=== PATIENT | male | born 1985 | race Caucasian/White ===

== ENCOUNTER 2022-07-09 08:33 | Observation (INO) | payer OTHER ==
--- NOTE | 2022-07-09 08:57 | ED ---
SOB HPI - General Chief Complaint: Shortness of Breath Stated Complaint: ISREAL Time Seen by Provider: 07/09/22 08:37 Source: patient, EMS, RN notes reviewed Mode of arrival: EMS Limitations: no limitations - History of Present Illness Initial Comments: Patient is a 37 year old male with a past medical history significant for asthma presents to the ER via EMS with a chief complaint of shortness of breath. Patient states his shortness of breath has been occurring for a couple of days. He endorses associated productive yellow cough and wheezing. Patient has been using his albuterol inhaler with no relief. When EMS arrived patient has low )2 saturation and was started on oxygen and received Duoneb. He states it helped but is now wearing off. Denies home O2 use. Patient admits to chills, nightsweats, headaches, and body aches for the past couple of days. Denies fevers, chest pain/palpitations, abdominal pain, diarrhea, constipation, or peripheral edema. - Related Data Home Medications Medication Instructions Recorded Confirmed Albuterol Nebulized [Ventolin 2.5 mg INHALATION RT-BID 07/09/22 07/09/22 Nebulized] Ipratropium Nebulized [Atrovent 0.5 mg INHALATION RT-BID 07/09/22 07/09/22 Nebulized 0.2 MG/ML] Allergies Allergy/AdvReac Type Severity Reaction Status Date / Time amoxicillin [From Augmentin] AdvReac Nausea Verified 07/09/22 09:52 clavulanic acid AdvReac Nausea Verified 07/09/22 09:52 [From Augmentin] Cats Allergy Itching Uncoded 07/09/22 08:42 Review of Systems ROS Statement: Those systems with pertinent positive or pertinent negative responses have been documented in the HPI. ROS Other: All systems not noted in ROS Statement are negative. Past Medical History Past Medical History: Asthma History of Any Multi-Drug Resistant Organisms: None Reported Past Surgical History: No Surgical Hx Reported Past Psychological History: Anxiety, Depression Smoking Status: Current some day smoker Past Alcohol Use History: None Reported Past Drug Use History: Heroin, Methamphetamine General Exam Limitations: no limitations General appearance: alert, in no apparent distress Head exam: Present: atraumatic, normocephalic, normal inspection Eye exam: Present: normal appearance, PERRL, EOMI. Absent: scleral icterus, conjunctival injection, periorbital swelling ENT exam: Present: normal exam, mucous membranes moist Neck exam: Present: normal inspection. Absent: tenderness, meningismus, lymphadenopathy Respiratory exam: Present: wheezes (diffuse bilateral), rales (diffuse bilateral ) Cardiovascular Exam: Present: regular rate, normal rhythm, normal heart sounds. Absent: systolic murmur, diastolic murmur, rubs, gallop, clicks GI/Abdominal exam: Present: soft, normal bowel sounds. Absent: distended, tenderness, guarding, rebound, rigid Extremities exam: Present: normal inspection, full ROM, normal capillary refill. Absent: tenderness, pedal edema, joint swelling, calf tenderness Back exam: Present: normal inspection Neurological exam: Present: alert, oriented X3, CN II-XII intact Psychiatric exam: Present: normal affect, normal mood Skin exam: Present: warm, dry, intact, normal color. Absent: rash Course Vital Signs 07/09/22 07/09/22 07/09/22 08:34 08:44 09:38 Temperature 97.9 F Pulse Rate 84 82 80 Respiratory 18 18 18 Rate Blood Pressure 114/76 116/72 O2 Sat by Pulse 91 L 95 95 Oximetry 07/09/22 07/09/22 09:51 10:00 Temperature Pulse Rate 84 Respiratory Rate Blood Pressure O2 Sat by Pulse 87 L Oximetry Medical Decision Making - Medical Decision Making 37-year-old male presented from [place] for shortness of breath. Patient is a daily smoker does have a history of asthma. Patient is found to be hypoxic with pulse ox 87 patient is has received multiple breathing treatments, steroids. Patient be admitted for asthma exacerbation. - Lab Data Lab Results 07/09/22 07/09/22 Range/Units 09:03 09:03 Coronavirus (PCR) Not Detected (Not Detectd) Influenza Type A RNA Not Detected (Not Detectd) Influenza Type B (PCR) Not Detected (Not Detectd) Disposition Clinical Impression: Hypoxia, Acute asthma exacerbation Disposition: ADMITTED IP TO THIS HOSP Condition: Fair Referrals: None,Stated [Primary Care Provider] - 1-2 days Time of Disposition: 10:14
[2022-07-09] MEDS ORDERED: IPRATROPIUM-ALBUTEROL 3 ML NEB INHALATION STA ×2 (08:59→09:32)
--- NOTE | 2022-07-09 09:09 | XR ---
EXAMINATION TYPE: XR chest 2V DATE OF EXAM: 07/09/2022 COMPARISON: NONE HISTORY: Chest pain TECHNIQUE: Frontal and lateral views of the chest are obtained. FINDINGS: There is no focal air space opacity. No evidence for pneumothorax. No pleural effusion. The cardiac silhouette size is within normal limits. The osseous structures are grossly intact. IMPRESSION: 1. No acute cardiopulmonary process.
[2022-07-09] MEDS ORDERED: methylPREDNISolone SOD SUCCI 125 MG/2 ML VIAL IM ONE (09:33)
[2022-07-09] MEDS ORDERED: methylPREDNISolone SOD SUCCI 125 MG/2 ML VIAL IV STA (09:34)
[2022-07-09] MEDS ORDERED: NALOXONE 0.4 MG/ML 1 ML VIAL IVP PRN (10:18)
[2022-07-09] MEDS ORDERED: ACETAMINOPHEN TAB 325 MG TAB PO PRN (10:18)
[2022-07-09 10:38] LABS: Basophils % (A) 0 %; Eosinophils # (A) 0.4 k/uL (0-0.7); Eosinophils % (A) 3 %; HCT 34.4 % (39.0-53.0); HGB 12.1 gm/dL (13.0-17.5); Lymphocytes # (A) 1.6 k/uL (1.0-4.8); Lymphocytes % (A) 14 %; MCH 31.3 pg (25.0-35.0); MCHC 35.1 g/dL (31.0-37.0); MCV 89.3 fL (80.0-100.0); Mean Platelet Volume 8.7; Monocytes # (A) 0.5 k/uL (0-1.0); Monocytes % (A) 5 %; Neutrophils % (A) 76 %; Platelet Count 206 k/uL (150-450); RBC 3.85 m/uL (4.30-5.90); RDW 13.3 % (11.5-15.5); WBC 11.8 k/uL (3.8-10.6)
[2022-07-09 11:01] LABS: ALT 19 U/L (4-49); African American GFR (CKD) >90 (>60 ml/min/1.73 sqM); Albumin 3.7 g/dL (3.5-5.0); Anion Gap 6 mmol/L; Blood Urea Nitrogen 18 mg/dL (9-20); Calcium 8.4 mg/dL (8.4-10.2); Carbon Dioxide 30 mmol/L (22-30); Chloride 98 mmol/L (98-107); Glucose 126 mg/dL (74-99); Non-African American GFR(CKD) >90 (>60 ml/min/1.73 sqM); Sodium 134 mmol/L (137-145); Total Bilirubin 0.8 mg/dL (0.2-1.3); Total Protein 6.3 g/dL (6.3-8.2)
[2022-07-09 11:17] LABS: Potassium 4.8 mmol/L (3.5-5.1)
[2022-07-09 11:18] LABS: AST 28 U/L (17-59); Alkaline Phosphatase 75 U/L (38-126)
[2022-07-09] MEDS: methylPREDNISolone SOD SUCCI 125 MG/2 ML VIAL IV SCH ×2 (12:09→17:31)
[2022-07-09] MEDS: NICOTINE 21MG/24HR PATCH TRANSDERM SCH (12:13)
--- NOTE | 2022-07-09 12:43 | P.HPIM ---
History of Present Illness H&P Date: 07/09/22 History of Presenting Illness: Patient is a very pleasant 37-year-old male with a past medical history of hepatitis C status post treatment, genital herpes, IVDA with heroin and methamphetamines, anxiety, asthma, and nicotine dependence smoking half a pack t o a pack of cigarettes daily since the age of 13. He presented to the emergency department with a chief complaint of increased shortness of breath. Patient presented to the emergency department via EMS with a chief complaint of shortness of breath/asthma exacerbation. Patient reports that he has been experiencing increasing shortness of breath with persistent productive cough 2- 3 days. Patient reports productive cough with yellow phlegm. He denies having any ill contacts or exposure to known illnesses. He denies having any fevers, chills, diaphoresis, chest pain, palpitations, nausea, vomiting, or experiencing any numbness/tingling/weakness in his extremities. Patient reports he has been trying to quit smoking and currently in [place] [facility]. Patient reports that he is from [place] and his PCP has managed his asthma his entire life since diagnosis as a child and states he has never been evaluated by a plugger man. Patient underwent full evaluation in the emergency department. Patient was found to be hypoxic on room air with SpO2 of 87% requiring oxygen supplementation, steroids, and breathing treatments. X-ray was completed negative for acute cardiopulmonary process. CBC and CMP completed revealing mild leukocytosis with WBC count of 11.8, normocytic anemia with hemoglobin of 12.1, and mild hyponatremia with sodium of 134. Covid PCR, influenza A, and influenza B were all negative. Patient admitted under our services with consultation to pulmonology. Review of systems: Pertinent positives and negatives as discussed in HPI, a complete review of systems was performed and all other systems are negative. Physical exam: Vital signs reviewed and stable. General: Nontoxic, no distress and appears stated age. Thin, frail. Derm: Skin warm and dry, normal coloration for ethnicity. Head: Atraumatic, normocephalic and symmetric. Eyes: EOMs intact, no lid lag, and anicteric sclera Mouth: no lip lesions, mucus membranes moist Cardiovascular: regular rate and rhythm with normal S1S2, no murmur, positive posterior tibial pulses bilaterally, and cap refill < 2 seconds. Lungs: Respirations even, regular, and unlabored on room air. Lungs with diffuse bilateral expiratory wheezes throughout all loaiza. No rhonchi, rales, or crackles noted. Abdominal: soft, nontender to palpation, no guarding, no appreciable organomegaly Ext: ROM intact. No gross muscle atrophy, no edema, no contractures Neuro: Speech clear, face symmetrical and CN II-XII grossly intact with no noted focal neuro deficits Psych: Alert and oriented to person, place, time, and situation. Appropriate and pleasant affect. Assessment and Plan of Care: Acute asthma exacerbation Acute respiratory failure with hypoxia secondary to above Nicotine dependence -Consult to Pulmonology -Oxygenation to be administered and titrated as needed to maintain SPO2 equal to or greater than 92% -Monitor Pulse-oximetry -Duonebs scheduled and as needed for SOB and/or wheezing -Incentive Spirometry -Steroids: Solu-Medrol -Nicotine patch, recommend smoking cessation Polysubstance abuse with IVDA heroin and methamphetamines History of hepatitis C, patient reports treatment with injections but does not recall the year he received these -Recommend returning to [place] for continued rehab upon discharge from hospital. The patient is admitted with an anticipated less than 2 midnight stay for evaluation of acute asthma exacerbation. CODE STATUS: Full code DVT prophylaxis: Heparin Discussed with: Patient Anticipated discharge date: Likely tomorrow Anticipated discharge place: Home/return to [place] A total of 44 minutes was spent on the care of this complex patient more than 50% of the time was spent in counseling and care coordination. I reviewed the documentation as provided by the BALDOMERO above, who is the original author of this note. I agree with the documented assessment and plan, with the following changes: none Past Medical History Past Medical History: Asthma History of Any Multi-Drug Resistant Organisms: None Reported Past Surgical History: No Surgical Hx Reported Past Psychological History: Anxiety, Depression Smoking Status: Current some day smoker Past Alcohol Use History: None Reported Past Drug Use History: Heroin, Methamphetamine Medications and Allergies Home Medications Medication Instructions Recorded Confirmed Type Albuterol Nebulized [Ventolin 2.5 mg INHALATION RT-BID 07/09/22 07/09/22 History Nebulized] Ipratropium Nebulized [Atrovent 0.5 mg INHALATION RT-BID 07/09/22 07/09/22 History Nebulized 0.2 MG/ML] Allergies Allergy/AdvReac Type Severity Reaction Status Date / Time amoxicillin [From Augmentin] AdvReac Nausea Verified 07/09/22 09:52 clavulanic acid AdvReac Nausea Verified 07/09/22 09:52 [From Augmentin] Cats Allergy Itching Uncoded 07/09/22 08:42 Physical Exam Osteopathic Statement: *. No significant issues noted on an osteopathic structural exam other than those noted in the History and Physical/Consult. Vitals: Vital Signs Temp Pulse Resp BP Pulse Ox 07/09/22 10:00 87 L 07/09/22 09:51 84 07/09/22 09:38 80 18 116/72 95 07/09/22 08:44 82 18 95 07/09/22 08:34 97.9 F 84 18 114/76 91 L Intake and Output 07/08/22 07/09/22 07/09/22 22:59 06:59 14:59 Other: Weight 56.699 kg Results CBC & Chem 7: 07/09/22 10:03 07/09/22 10:03 Labs: Abnormal Lab Results - Last 24 Hours (Table) 07/09/22 Range/Units 10:03 WBC 11.8 H (3.8-10.6) k/uL RBC 3.85 L (4.30-5.90) m/uL Hgb 12.1 L (13.0-17.5) gm/dL Hct 34.4 L (39.0-53.0) % Neutrophils # 9.0 H (1.3-7.7) k/uL
[2022-07-09] MEDS: IPRATROPIUM-ALBUTEROL 3 ML NEB INHALATION SCH ×3 (13:04→20:23)
[2022-07-09] MEDS: HEPARIN SODIUM,PORCINE/PF 5,000 UNIT/0.5 ML SYRINGE SQ SCH (16:46)
--- NOTE | 2022-07-09 17:57 | P.CNPUL ---
History of Present Illness Consult date: 07/09/22 Reason for consult: COPD History of present illness: 37-year-old male patient, no history of smoking, polysubstance abuse, who was at [place] [facility] and the patient was admitted to our hospital because of worsening shortness of breath. He presented emergency department with increased dyspnea, chest tightness, wheezing and worsening shortness of breath. He is known to have COPD. He does not have any maintenance respiratory medications. No n ebulizer. No oxygen. He has received 1 dose of [employer] Covid 19 vaccination and he denies having an active infection. He smokes somewhere between half to 1 pack of cigarettes a day. The patient has history of IV drug use including heroin and he uses also methamphetamine and he has issues with chronic hepatitis C and he has received treatment in that regard and has genital herpes. The patient is being rehabilitated through [facility] facility. During this current admission, the patient's chest x-ray shows some fullness in the hilar area bilaterally. Otherwise there is no acute abnormalities. Rest of the blood work is essentially negative. Normal CBC and normal complete metabolic profile. The patient's vital screening including influenza A, influenza B and Covid 19 are all negative. The patient is able to speak of. Is S/P no signs of any CO2 narcosis. No pleurisy or hemoptysis. His liver function tests are within normal limits. His white cell count is 11.8. Review of Systems Constitutional: Denies chills, Denies fever Eyes: denies as per HPI, denies blurred vision, denies bulging eye, denies decreased vision, denies diplopia, denies discharge, denies dry eye, denies irritation, denies itching, denies pain, denies photophobia, denies loss of peripheral vision, denies loss of vision, denies tunnel vision/blind spots Ears: deny: decreased hearing, ear discharge, earache, tinnitus Ears, nose, mouth and throat: Reports as per HPI Breasts: absent: as per HPI, gynecomastia Cardiovascular: Reports decreased exercise tolerance, Reports dyspnea on exertion, Reports shortness of breath Respiratory: Reports cough, Reports dyspnea, Reports wheezing Gastrointestinal: Reports as per HPI Genitourinary: Reports as per HPI Musculoskeletal: Reports as per HPI Musculoskeletal: absent: ankle pain, ankle stiffness, ankle swelling Integumentary: Reports as per HPI Neurological: Reports as per HPI Psychiatric: Reports as per HPI Endocrine: Reports as per HPI Hematologic/Lymphatic: Reports as per HPI Allergic/Immunologic: Reports allergic rhinitis Past Medical History Past Medical History: Asthma, COPD, GERD/Reflux, Liver Disease, Pneumonia Additional Past Medical History / Comment(s): Hepatitis C/pt states had treatment and is in remission, constipation. History of Any Multi-Drug Resistant Organisms: None Reported Past Surgical History: No Surgical Hx Reported Past Anesthesia/Blood Transfusion Reactions: Unable to Obtain Additional Past Anesthesia/Blood Transfusion Reaction / Comment(s): Pt has never had surgery. Smoking Status: Current every day smoker, Light tobacco smoker - Past Family History Father Family Medical History: Cancer Additional Family Medical History / Comment(s): Melanoma Mother Family Medical History: No Reported History Additional Family Medical History / Comment(s): Mother is healthy. Medications and Allergies Home Medications Medication Instructions Recorded Confirmed Type Albuterol Nebulized [Ventolin 2.5 mg INHALATION RT-BID 07/09/22 07/09/22 History Nebulized] Ipratropium Nebulized [Atrovent 0.5 mg INHALATION RT-BID 07/09/22 07/09/22 History Nebulized 0.2 MG/ML] Allergies Allergy/AdvReac Type Severity Reaction Status Date / Time amoxicillin [From Augmentin] AdvReac Nausea Verified 07/09/22 09:52 clavulanic acid AdvReac Nausea Verified 07/09/22 09:52 [From Augmentin] Cats Allergy Itching Uncoded 07/09/22 08:42 Physical Exam Vitals: Vital Signs Temp Pulse Pulse Resp BP BP Pulse Ox 07/09/22 16:04 97.5 F L 75 17 106/68 95 07/09/22 15:20 97.4 F L 83 18 107/72 95 07/09/22 13:12 72 07/09/22 13:06 68 07/09/22 12:05 62 18 107/71 97 07/09/22 10:00 87 L 07/09/22 09:51 84 07/09/22 09:38 80 18 116/72 95 07/09/22 08:44 82 18 95 07/09/22 08:34 97.9 F 84 18 114/76 91 L Intake and Output 07/09/22 07/09/22 07/09/22 06:59 14:59 22:59 Other: # Voids 1 Weight 56.699 kg 56.699 kg General: Nontoxic, no distress and appears stated age. Thin, frail. Derm: Skin warm and dry, normal coloration for ethnicity. Head: Atraumatic, normocephalic and symmetric. Eyes: EOMs intact, no lid lag, and anicteric sclera Mouth: no lip lesions, mucus membranes moist Cardiovascular: regular rate and rhythm with normal S1S2, no murmur, positive posterior tibial pulses bilaterally, and cap refill < 2 seconds. Lungs: Respirations even, regular, and unlabored on room air. Lungs with diffuse bilateral expiratory wheezes throughout all loaiza. No rhonchi, rales, or crackles noted. Abdominal: soft, nontender to palpation, no guarding, no appreciable organomegaly Ext: ROM intact. No gross muscle atrophy, no edema, no contractures Neuro: Speech clear, face symmetrical and CN II-XII grossly intact with no noted focal neuro deficits Psych: Alert and oriented to person, place, time, and situation. Appropriate and pleasant affect. Results - Laboratory Findings CBC and BMP: 07/09/22 10:03 07/09/22 10:03 Abnormal lab findings: Abnormal Labs 07/09/22 07/09/22 10:03 10:03 WBC 11.8 H RBC 3.85 L Hgb 12.1 L Hct 34.4 L Neutrophils # 9.0 H Sodium 134 L Creatinine 0.57 L Glucose 126 H - Diagnostic Findings Chest x-ray: image reviewed Assessment and Plan Plan: Acute exacerbation of chronic COPD. Underlying asthma is possible that the presentation is more consistent with COPD due to his chronic smoking and drug use. Acute hypoxic yesterday failure secondary to above currently on 2 L of O2 nasal cannula Shortness of breath secondary to above History of polysubstance abuse History of IVDA/heroin History of hepatitis C infection, treated History of genital herpes Chronic tobacco use Plan Agree on the current treatment Very important for this patient to quit smoking as soon as possible and he was counseled in that regard Continue rehabilitation was second heart Obtain alpha-1 antitrypsin level on outpatient basis as the patient is quite young for COPD Obtain outpatient PFT Will need a maintenance as for medication. Suggested either stiolto, or Anoro , Trelegy Ellipta on outpatient basis. He will need also a nebulizer and albuterol rescue inhaler in the form of an HFA to be is on as-needed basis Routine vaccination We'll follow
[2022-07-09] MEDS: IPRATROPIUM-ALBUTEROL 3 ML NEB INHALATION PRN (21:04)
[2022-07-10] MEDS: methylPREDNISolone SOD SUCCI 125 MG/2 ML VIAL IV SCH ×5 (00:46→23:24)
[2022-07-10] MEDS: HEPARIN SODIUM,PORCINE/PF 5,000 UNIT/0.5 ML SYRINGE SQ SCH ×4 (00:47→23:25)
[2022-07-10] MEDS: IPRATROPIUM-ALBUTEROL 3 ML NEB INHALATION SCH ×4 (08:23→19:59)
[2022-07-10] MEDS: NICOTINE 21MG/24HR PATCH TRANSDERM SCH (09:41)
[2022-07-10] MEDS: METHADONE 10 MG TAB PO SCH (14:12)
--- NOTE | 2022-07-10 14:40 | P.PN ---
Subjective Progress Note Date: 07/10/22 37-year-old male patient, no history of smoking, polysubstance abuse, who was at [place] and the patient was admitted to our hospital because of worsening shortness of breath. He presented emergency department with increased dyspnea, chest tightness, wheezing and worsening shortness of breath. He is known to have COPD. He does not have any maintenance respiratory medications. No nebulizer. No oxygen. He has received 1 dose of [employer] Covid 19 vaccination and he denies having an active infection. He smokes somewhere between half to 1 pack of cigarettes a day. The patient has history of IV drug use including heroin and he uses also methamphetamine and he has issues with chronic hepatitis C and he has received treatment in that regard and has genital herpes. The patient is being rehabilitated through [place] [facility] facility. During this current admission, the patient's chest x-ray shows some fullness in the hilar area bilaterally. Otherwise there is no acute abnormalities. Rest of the blood work is essentially negative. Normal CBC and normal complete metabolic profile. The patient's vital screening including influenza A, influenza B and Covid 19 are all negative. The patient is able to speak of. Is S/P no signs of any CO2 narcosis. No pleurisy or hemoptysis. His liver function tests are within normal limits. His white cell count is 11.8. The patient is seen today the 2021 in follow-up on the regular medical floor. He is currently resting comfortably in bed. Awake and alert in no acute distress. Denies any worsening shortness of breath, cough and congestion. He is maintaining O2 saturations in the 90s on room air. He is afebrile. Hemodynamically stable. He is starting to feel in need of his methadone which has been reordered. He is continued on DuoNeb inhalations, IV Solu-Medrol. NicoDerm patches in place. Objective - Vital Signs Vital signs: Vital Signs Temp 97.5 F L 07/10/22 07:00 Pulse 98 07/10/22 13:16 Resp 16 07/10/22 07:00 BP 107/66 07/10/22 07:00 Pulse Ox 94 L 07/10/22 08:24 FiO2 Intake & Output 07/09/22 07/10/22 07/10/22 18:59 06:59 18:59 Intake Total 354 Balance 354 Weight 56.699 kg Intake: Oral 354 Other: # Voids 1 1 - Exam General: A pleasant 37-year-old male patient. Nontoxic, no distress and appears stated age. Thin, frail. Derm: Skin warm and dry, normal coloration for ethnicity. Head: Atraumatic, normocephalic and symmetric. Eyes: EOMs intact, no lid lag, and anicteric sclera Mouth: no lip lesions, mucus membranes moist Cardiovascular: regular rate and rhythm with normal S1S2, no murmur, positive posterior tibial pulses bilaterally, and cap refill < 2 seconds. Lungs: Respirations even, regular, and unlabored on room air. Lungs with bilateral expiratory wheezes throughout all loaiza. No rhonchi, rales, or crackles noted. Abdominal: soft, nontender to palpation, no guarding, no appreciable organomegaly Ext: ROM intact. No gross muscle atrophy, no edema, no contractures Neuro: Speech clear, face symmetrical and CN II-XII grossly intact with no noted focal neuro deficits Psych: Alert and oriented to person, place, time, and situation. Appropriate and pleasant affect. - Labs CBC & Chem 7: 07/09/22 10:03 07/09/22 10:03 Assessment and Plan Assessment: Acute exacerbation of chronic COPD. Underlying asthma is possible that the presentation is more consistent with COPD due to his chronic smoking and drug use. Acute hypoxic yesterday failure secondary to above currently on 2 L of O2 nasal cannula Shortness of breath secondary to above History of polysubstance abuse History of IVDA/heroin History of hepatitis C infection, treated History of genital herpes Chronic tobacco use Plan The patient was seen and evaluated Medications reviewed Continue bronchodilators, steroids Educated regarding the importance of complete smoking cessation NicoDerm patches apply Would benefit from outpatient workup including full PFT The plan is to return to [place] rehabilitation upon discharge I have personally seen and examined the patient, performed the documentation and the assessment and plan as written. Number of minutes spent on the visit: 10. Joint evaluation that was done along with a nurse practitioner. Clinically stable. No new complaints. Having some symptoms of withdrawal and the patient will need to go back on methadone. Continue optimizing COPD exacerbation with a combination of bronchodilators and steroids. We'll continue to follow.
--- NOTE | 2022-07-10 18:27 | P.PN ---
Subjective Progress Note Date: 07/10/22 Hospital course: Patient is a very pleasant 37-year-old male with a past medical history of hepatitis C status post treatment, genital herpes, IVDA with heroin and methamphetamines, anxiety, asthma, and nicotine dependence smoking half a pack to a pack of cigarettes daily since the age of 13. He presented to the emergency department with a chief complaint of increased shortness of breath. Patient presented to the emergency department via EMS with a chief complaint of shortness of breath/asthma exacerbation from [facility] reporting that he has been experiencing increasing shortness of breath with persistent productive cough 2-3 days. Patient reports he has been trying to quit smoking and currently in [facility]. Patient reports that he is from [place] and his PCP has managed his asthma his entire life since diagnosis as a child and states he has never been evaluated by a manager of planning. Patient underwent full evaluation in the emergency department. Patient was found to be hypoxic on room air with SpO2 of 87% requiring oxygen supplementation, steroids, and breathing treatments. X-ray was completed negative for acute cardiopulmonary process. CBC and CMP completed revealing mild leukocytosis with WBC count of 11.8, normocytic anemia with hemoglobin of 12.1, and mild hyponatremia with sodium of 134. Covid PCR, influenza A, and influenza B were all negative. Patient admitted under our services with consultation to pulmonology. Physical exam: Patient seen and fully evaluated at bedside this morning. He reports feeling slightly better but states he feels still weak and short of breath. Patient does have continued bronchospasms with wheezing throughout all loaiza this morning. However he is maintaining his oxygen saturation in the 90s on room air and showing no signs of acute distress with respirations even, regular, and unlabored. Patient again educated on the importance of smoking cessation and risks associated with continued use. Patient to continue with scheduled and as needed DuoNeb treatments and IV steroids with plan for discharge home on prednisone taper tomorrow. Vital signs reviewed and stable. General: Nontoxic, no distress and appears stated age. Thin, frail. Derm: Skin warm and dry, normal coloration for ethnicity. Head: Atraumatic, normocephalic and symmetric. Eyes: EOMs intact, no lid lag, and anicteric sclera Mouth: no lip lesions, mucus membranes moist Cardiovascular: regular rate and rhythm with normal S1S2, no murmur, positive posterior tibial pulses bilaterally, and cap refill < 2 seconds. Lungs: Respirations even, regular, and unlabored on room air. Lungs with diffuse bilateral expiratory wheezes throughout all loaiza. No rhonchi, rales, or crackles noted. Abdominal: soft, nontender to palpation, no guarding, no appreciable organomegaly Ext: ROM intact. No gross muscle atrophy, no edema, no contractures Neuro: Speech clear, face symmetrical and CN II-XII grossly intact with no noted focal neuro deficits Psych: Alert and oriented to person, place, time, and situation. Appropriate and pleasant affect. Assessment and Plan of Care: Acute asthma exacerbation Acute respiratory failure with hypoxia secondary to above Nicotine dependence -Consult to Pulmonology -Oxygenation to be administered and titrated as needed to maintain SPO2 equal to or greater than 92% -Monitor Pulse-oximetry -Duonebs scheduled and as needed for SOB and/or wheezing -Incentive Spirometry -Steroids: Solu-Medrol -Nicotine patch, recommend smoking cessation Polysubstance abuse with IVDA heroin and methamphetamines History of hepatitis C, patient reports treatment with injections but does not recall the year he received these -Recommend returning to [facility] for continued rehab upon discharge from hospital. -Methadone was verified by pharmacy and reordered this morning. CODE STATUS: Full code DVT prophylaxis: Heparin Discussed with: Patient and RN Anticipated discharge date: Tomorrow morning Anticipated discharge place: Home/return to [facility] A total of 31 minutes was spent on the care of this complex patient more than 50% of the time was spent in counseling and care coordination. I reviewed the documentation as provided by the BALDOMERO above, who is the original author of this note. I agree with the documented assessment and plan, with the following changes: none Objective - Vital Signs Vital signs: Vital Signs Temp 97.5 F L 07/10/22 07:00 Pulse 89 07/10/22 08:34 Resp 16 07/10/22 07:00 BP 107/66 07/10/22 07:00 Pulse Ox 94 L 07/10/22 08:24 FiO2 Intake & Output 07/09/22 07/10/22 07/10/22 18:59 06:59 18:59 Intake Total 118 Balance 118 Weight 56.699 kg Intake: Oral 118 Other: # Voids 1 1 - Labs CBC & Chem 7: 07/09/22 10:03 07/09/22 10:03
[2022-07-10] MEDS ORDERED: MELATONIN 5 MG TABLET PO STA (19:49)
[2022-07-10] MEDS ORDERED: ALPRAZolam 0.5 MG TAB PO STA (19:49)
[2022-07-11] MEDS: IPRATROPIUM-ALBUTEROL 3 ML NEB INHALATION PRN (01:00)
[2022-07-11] MEDS ORDERED: BENZONATATE 100 MG CAP PO PRN (01:46)
[2022-07-11] MEDS: methylPREDNISolone SOD SUCCI 125 MG/2 ML VIAL IV SCH ×3 (06:32→17:17)
[2022-07-11] MEDS: IPRATROPIUM-ALBUTEROL 3 ML NEB INHALATION SCH ×5 (08:35→19:58)
[2022-07-11] MEDS: NICOTINE 21MG/24HR PATCH TRANSDERM SCH (08:54)
[2022-07-11] MEDS: METHADONE 10 MG TAB PO SCH (08:54)
[2022-07-11] MEDS: HEPARIN SODIUM,PORCINE/PF 5,000 UNIT/0.5 ML SYRINGE SQ SCH ×2 (08:55→17:17)
[2022-07-11] MEDS ORDERED: ALPRAZolam 0.5 MG TAB PO STA (10:18)
--- NOTE | 2022-07-11 14:13 | P.PN ---
Subjective Progress Note Date: 07/11/22 Principal diagnosis: SOB Hospital Course: Patient is a very pleasant 37-year-old male with a past medical history of hepatitis C status post treatment, genital herpes, IVDA with heroin and methamphetamines, anxiety, asthma, and nicotine dependence smoking half a pack to a pack of cigarettes daily since the age of 13. He presented to the emergency department with a chief complaint of increased shortness of breath. Patient presented to the emergency department via EMS with a chief complaint of shortness of breath/asthma exacerbation from [facility] reporting that he has been experiencing increasing shortness of breath with persistent productive cough 2-3 days. Patient reports he has been trying to quit smoking and currently in [facility]. Patient reports that he is from [place] and his PCP has managed his asthma his entire life since diagnosis as a child and states he has never been evaluated by a lmonologist. Patient underwent full evaluation in the emergency department. Patient was found to be hypoxic on room air with SpO2 of 87% requiring oxygen supplementation, steroids, and breathing treatments. X-ray was completed negative for acute cardiopulmonary process. CBC and CMP completed revealing mild leukocytosis with WBC count of 11.8, normocytic anemia with hemoglobin of 12.1, and mild hyponatremia with sodium of 134. Covid PCR, influenza A, and influenza B were all negative. Patient admitted under our services with consultation to pulmonology. Subjective: Patient seen and examined at bedside. No acute events overnight. Still complaining of some nausea. He he still has some shortness of breath at rest and with exertion. He denies any chest pain, abdominal pain, vomiting, diarrhea, constipation, or urinary complaints. Pertinent positives and negatives as discussed above, a complete review of systems was performed and all other systems are negative. Vitals Signs Reviewed. General: nontoxic, no distress, appears at stated age Derm: warm, dry Head: atraumatic, normocephalic, symmetric Eyes: EOMI, no lid lag, anicteric sclera Mouth: no lip lesion, mucus membranes moist Cardiovascular: S1S2 reg, no murmur Lungs: Scattered wheezes bilaterally, no accessory muscle use Abdominal: soft, nontender to palpation, no guarding, no appreciable organomegaly Ext: no gross muscle atrophy, no edema, no contractures Neuro: CN II-XI grossly intact, no focal neuro deficits Psych: Alert, oriented, appropriate affect Assessment and Plan: Acute COPD exacerbation and possible asthma exacerbation Acute respiratory failure with hypoxia secondary to above Nicotine dependence -Consult to Pulmonology -Oxygenation to be administered and titrated as needed to maintain SPO2 equal to or greater than 92% -Monitor Pulse-oximetry -Duonebs scheduled and as needed for SOB and/or wheezing -Incentive Spirometry -Steroids: Solu-Medrol -Nicotine patch, recommend smoking cessation Polysubstance abuse with IVDA heroin and methamphetamines History of hepatitis C, patient reports treatment with injections but does not recall the year he received these -Recommend returning to [facility] for continued rehab upon discharge from hospital. -on methadone DVT ppx: SQ heparin Code status: full code Anticipated discharge place: [place] Anticipated discharge time: tomorrow Objective - Vital Signs Vital signs: Vital Signs Temp 97.5 F L 07/11/22 07:00 Pulse 65 07/11/22 13:27 Resp 16 07/11/22 13:27 BP 108/57 07/11/22 07:00 Pulse Ox 93 L 07/11/22 08:35 FiO2 21 07/11/22 08:35 Intake & Output 07/10/22 07/11/22 07/11/22 18:59 06:59 18:59 Intake Total 354 920 354 Balance 354 920 354 Intake: Oral 354 920 354 Other: Voiding Method Toilet Toilet # Voids 4 2 # Bowel Movements 2 - Labs CBC & Chem 7: 07/09/22 10:03 07/09/22 10:03
--- NOTE | 2022-07-11 15:09 | P.PN ---
Subjective Progress Note Date: 07/11/22 37-year-old male patient, no history of smoking, polysubstance abuse, who was at [facility] and the patient was admitted to our hospital because of worsening shortness of breath. He presented emergency department with increased dyspnea, chest tightness, wheezing and worsening shortness of breath. He is known to have COPD. He does not have any maintenance respiratory medications. No nebulizer. No oxygen. He has received 1 dose of [employer] Covid 19 vaccination and he denies having an active infection. He smokes somewhere between half to 1 pack of cigarettes a day. The patient has history of IV drug use including heroin and he uses also methamphetamine and he has issues with chronic hepatitis C and he has received treatment in that regard and has genital herpes. The patient is being rehabilitated through [facility]. During this current admission, the patient's chest x-ray shows some fullness in the hilar area bilaterally. Otherwise there is no acute abnormalities. Rest of the blood work is essentially negative. Normal CBC and normal complete metabolic profile. The patient's vital screening including influenza A, influenza B and Covid 19 are all negative. The patient is able to speak of. Is S/P no signs of any CO2 narcosis. No pleurisy or hemoptysis. His liver function tests are within normal limits. His white cell count is 11.8. The patient is seen today the 2021 in follow-up on the regular medical floor. He is currently resting comfortably in bed. Awake and alert in no acute distress. Denies any worsening shortness of breath, cough and congestion. He is maintaining O2 saturations in the 90s on room air. He is afebrile. Hemodynamically stable. He is starting to feel in need of his methadone which has been reordered. He is continued on DuoNeb inhalations, IV Solu-Medrol. NicoDerm patches in place. The patient is seen today 07/11/2022 in follow-up on the regular medical floor. He is currently laying flat in bed. Awake and alert in no acute distress. Still not feeling back to his baseline. Still somewhat bronchospastic and wheezy.he is continued on DuoNeb inhalations, IV Solu Medrol. Heparin for DVT prophylaxis. NicoDerm patch is in place. He is maintained on his methadone. Objective - Vital Signs Vital signs: Vital Signs Temp 97.6 F 07/11/22 14:57 Pulse 70 07/11/22 14:57 Resp 16 07/11/22 14:57 BP 114/67 07/11/22 14:57 Pulse Ox 96 07/11/22 14:57 FiO2 21 07/11/22 08:35 Intake & Output 07/10/22 07/11/22 07/11/22 18:59 06:59 18:59 Intake Total 354 920 708 Balance 354 920 708 Intake: Oral 354 920 708 Other: Voiding Method Toilet Toilet # Voids 4 2 # Bowel Movements 2 - Exam General: A pleasant 37-year-old male patient. On room air. No distress and appears stated age. Thin, frail. Derm: Skin warm and dry, normal coloration for ethnicity. Head: Atraumatic, normocephalic and symmetric. Eyes: EOMs intact, no lid lag, and anicteric sclera Mouth: no lip lesions, mucus membranes moist Cardiovascular: regular rate and rhythm with normal S1S2, no murmur, positive posterior tibial pulses bilaterally, and cap refill < 2 seconds. Lungs: Respirations even, regular, and unlabored on room air. Lungs with bilateral expiratory wheezes throughout all loaiza. No rhonchi, rales, or crackles noted. Abdominal: soft, nontender to palpation, no guarding, no appreciable organomegaly Ext: ROM intact. No gross muscle atrophy, no edema, no contractures Neuro: Speech clear, face symmetrical and CN II-XII grossly intact with no noted focal neuro deficits Psych: Alert and oriented to person, place, time, and situation. Appropriate and pleasant affect. - Labs CBC & Chem 7: 07/09/22 10:03 07/09/22 10:03 Assessment and Plan Assessment: Acute exacerbation of chronic COPD. Underlying asthma is possible that the presentation is more consistent with COPD due to his chronic smoking and drug use. Acute hypoxic yesterday failure secondary to above currently on 2 L of O2 nasal cannula Shortness of breath secondary to above History of polysubstance abuse History of IVDA/heroin History of hepatitis C infection, treated History of genital herpes Chronic tobacco use Plan The patient was seen and evaluated Medications reviewed Stable and on room air Not quite back to baseline Continue bronchodilators, steroids Educated regarding the importance of complete smoking cessation NicoDerm patch in place Would benefit from outpatient workup including full PFT The plan is to return to [facility] upon discharge I have personally seen and examined the patient, performed the documentation and the assessment and plan as written. Number of minutes spent on the visit: 10. Evaluation that was done along with the nurse practitioner. I agree on the above-mentioned plan. The patient was seen in conjunction with the TOPOGRAPHICAL SURVEYOR. This evaluation was done in more than 20 minutes.
[2022-07-11] MEDS: ALPRAZolam 0.5 MG TAB PO PRN (17:33)
[2022-07-11] MEDS ORDERED: MELATONIN 5 MG TABLET PO SCH (21:00)
[2022-07-12] MEDS: HEPARIN SODIUM,PORCINE/PF 5,000 UNIT/0.5 ML SYRINGE SQ SCH ×2 (00:12→08:34)
[2022-07-12] MEDS: methylPREDNISolone SOD SUCCI 125 MG/2 ML VIAL IV SCH ×2 (00:12→06:29)
[2022-07-12] MEDS: IPRATROPIUM-ALBUTEROL 3 ML NEB INHALATION PRN (00:48)
[2022-07-12] MEDS: ALPRAZolam 0.5 MG TAB PO PRN (06:29)
[2022-07-12] MEDS: IPRATROPIUM-ALBUTEROL 3 ML NEB INHALATION SCH (08:06)
[2022-07-12 08:34] VITALS: BP 132/80; PULSE 59; RESP 17; TEMP 98.1
[2022-07-12] MEDS: NICOTINE 21MG/24HR PATCH TRANSDERM SCH (08:34)
[2022-07-12] MEDS: METHADONE 10 MG TAB PO SCH (08:34)
--- NOTE | 2022-07-12 13:22 | P.DS ---
Providers Date of admission: 07/09/22 10:36 Expected date of discharge: 07/12/22 Attending physician: Katherine Painter MD Consults: 07/09/22 11:56 Consult Physician Urgent Consulting Provider: Hardeep Cohen Consult Reason/Comments: asthma/COPD/nicotine dependence, never been seen by a typewriter ribbon winder Do you want consulting provider notified?: Yes Primary care physician: Stated None Hospital Course: Discharge Diagnosis: Acute exacerbation of COPD History of asthma Acute hypoxic respiratory failure Nicotine dependence History of polysubstance abuse History of hep C infection, treated History of genital herpes Hospital Course: Patient is a very pleasant 37-year-old male with a past medical history of hepatitis C status post treatment, genital herpes, IVDA with heroin and methamphetamines, anxiety, asthma, and nicotine dependence smoking half a pack to a pack of cigarettes daily since the age of 13. He presented to the emergency department with a chief complaint of increased shortness of breath. Patient presented to the emergency department via EMS with a chief complaint of shortness of breath/asthma exacerbation from [facility] reporting that he has been experiencing increasing shortness of breath with persistent productive cough 2-3 days. Patient reports he has been trying to quit smoking and currently in [facility]. Patient reports that he is from [place] and his PCP has managed his asthma his entire life since diagnosis as a child and states he has never been evaluated by a typewriter ribbon winder. Patient underwent full evaluation in the emergency department. Patient was found to be hypoxic on room air with SpO2 of 87% requiring oxygen supplementation, steroids, and breathing treatments. X-ray was completed negative for acute cardiopulmonary process. CBC and CMP completed revealing mild leukocytosis with WBC count of 11.8, normocytic anemia with hemoglobin of 12.1, and mild hyponatremia with sodium of 134. Covid PCR, influenza A, and influenza B were all negative. Patient admitted under our services with consultation to pulmonology. Patient treated for COPD exacerbation with steroid s, and bronchodilators. Shortness of breath improved at discharge. Patient returning back to [facility]. Patient will need outpatient PFT. Patient seen and examined at bedside. Vital signs reviewed and stable. General: nontoxic, no distress, appears at stated age Derm: warm, dry Head: atraumatic, normocephalic, symmetric Eyes: EOMI, no lid lag, anicteric sclera Mouth: no lip lesion, mucus membranes moist Cardiovascular: S1S2 reg, no murmur Lungs: Scattered wheezes bilaterally, no accessory muscle use Abdominal: soft, nontender to palpation, no guarding, no appreciable organomegaly Ext: no gross muscle atrophy, no edema, no contractures Neuro: CN II-XI grossly intact, no focal neuro deficits Psych: Alert, oriented, appropriate affect A total of 38 minutes of time were spent preparing this complex discharge summary. Patient was discharged on 07/12/22 at 10:25. Patient Condition at Discharge: Fair Plan - Discharge Summary Discharge Rx Participant: No New Discharge Prescriptions: New predniSONE [Deltasone] 40 mg PO DAILY #10 tab Melatonin 5 mg PO HS #30 tab Benzonatate [Tessalon Perles] 100 mg PO TID PRN #30 cap PRN Reason: Cough Continue Ipratropium Nebulized [Atrovent Nebulized 0.2 MG/ML] 0.5 mg INHALATION RT-BID Albuterol Nebulized [Ventolin Nebulized] 2.5 mg INHALATION RT-BID Methadone HCl [Methadone Intensol] 80 mg PO DAILY Discharge Medication List Albuterol Nebulized [Ventolin Nebulized] 2.5 mg INHALATION RT-BID 07/09/22 [History] Ipratropium Nebulized [Atrovent Nebulized 0.2 MG/ML] 0.5 mg INHALATION RT-BID 07/09/22 [History] Methadone HCl [Methadone Intensol] 80 mg PO DAILY 07/10/22 [History] Benzonatate [Tessalon Perles] 100 mg PO TID PRN #30 cap 07/12/22 [Rx] Melatonin 5 mg PO HS #30 tab 07/12/22 [Rx] predniSONE [Deltasone] 40 mg PO DAILY #10 tab 07/12/22 [Rx] Follow up Appointment(s)/Referral(s): None,Stated [Primary Care Provider] - 1-2 days Patient Instructions/Handouts: COPD (Chronic Obstructive Pulmonary Disease) (DC) Activity/Diet/Wound Care/Special Instructions: Please see PCP in 1-2 days. Discharge Disposition: OTHER INSTITUTION NOT DEFINED
== END 2022-07-12 11:44 | disposition other institution (70) ==
LOC: EC 08:33 → 6NMEDSUR 10:36
PROVIDERS: ADMIT Internal Medicine; ATTEND Internal Medicine
DX: J45.901 Unspecified asthma with (acute) exacerbation (principal); J96.01 Acute respiratory failure with hypoxia; F32.A Depression, unspecified; F41.9 Anxiety disorder, unspecified; B18.2 Chronic viral hepatitis C; K21.9 Gastro-esophageal reflux disease without esophagitis; F19.10 Other psychoactive substance abuse, uncomplicated; A60.02 Herpesviral infection of other male genital organs; F17.210 Nicotine dependence, cigarettes, uncomplicated; Z88.0 Allergy status to penicillin; Z20.822 Contact with and (suspected) exposure to COVID-19
CPT/HCPCS: 96372 ×4; 96376 ×5; 96374; 99285; 36415; 94640 ×7; 94760 ×2; 80053; 85025; 87502; 87635; 71046; G0378 ×4; S4990 ×4; J2930 ×4; S0109 ×3; J1644 ×4